=== PATIENT | male | born 1960 | race Caucasian/White ===

== ENCOUNTER 2017-06-26 12:23 | Day surgery (SDC) | payer BC ==
[~2017-06-26 12:23] MED LIST: BISACODYL 10 MG SUPP.RECT RC ONE; LACTATED RINGERS 1,000 ML IV.SOLN IV ONE; LIDOCAINE HCL/PF 2% 100 MG/5 ML VIAL IJ ONE; PROPOFOL 500 MG/50 ML VIAL IV ONE; SALINE FLUSH 10 ML DISP.SYRIN IVF ONE
[2017-06-26] MEDS ORDERED: BISACODYL 10 MG SUPP.RECT RC ONE (13:01)
--- NOTE | 2017-06-26 14:51 | GI Report ---
REFERRING PHYSICIAN: Dr. Jamil Moreno CHIEF DIGITAL OFFICER: Lebron Colby MD PROCEDURE MEDICATION: Propofol as per anesthesia. INDICATIONS: Patient is a 56-year-old man referred for a screening. He has been a diabetic for a number of years and is on oral agents. Sometimes there is a little blood with the stool. Sometimes he does strain. He is referred for a colonoscopy for the above indications. Last colonoscopy was 11 years ago over at the [facility]. On examination prior to the procedure, patient has prolapsed hemorrhoids. PROCEDURE PERFORMED: Colonoscopy and polypectomy. PROCEDURE: An Olympus video colonoscope was advanced to the rectum. A slightly atonic redundant colon. It took some maneuvering to reach the cecum. The appendiceal orifice and ileocecal valve were normal. We did lavage the cecum and ascending colon because there still was a little residual stool. No obvious intraluminal lesions noted. The transverse colon and descending colon with some redundancy. No obvious intraluminal lesions noted. In the sigmoid colon at 20 cm, patient had a 4 to 5 mm polyp removed with electrocautery. Retroflexion of the rectum shows internal hemorrhoids, as well as internal hemorrhoids prolapsed through the anal canal. FINDINGS: 1. Colon polyp in the sigmoid, removed. 2. Atonic redundant colon. 3. Internal hemorrhoids that tend to prolapse. RECOMMENDATIONS: 1. Add fiber to the diet. 2. Pending the pathology of the polyp, he needs his colon looked at again in 5 years. 3. Consider a referral to Dr. Benton regarding possible surgical banding or an approach to the hemorrhoids since they prolapse significantly. cc: Dr. Jamil TAMEZ
== END 2017-06-26 12:24 ==
LOC: OPSURG 12:23
PROVIDERS: ATTEND Internal Medicine Gastroenterology
DX: Z12.11 Encounter for screening for malignant neoplasm of colon (principal); D12.5 Benign neoplasm of sigmoid colon; K59.8 Other specified functional intestinal disorders; K64.8 Other hemorrhoids
CPT/HCPCS: 88305; J2001; J2704; J7120; 45385; S1016

== ENCOUNTER 2017-06-28 09:03 | Outpatient (CLI) | payer BC ==
[2017-06-28 10:14] LABS: eGFR (African) > 60; eGFR (Non-African) > 60
== END 2017-06-28 09:05 ==
LOC: LAB 09:03
PROVIDERS: ATTEND Family Medicine
DX: E11.9 Type 2 diabetes mellitus without complications (principal)
CPT/HCPCS: 36415; 80053; 80061; 82043

== ENCOUNTER 2017-07-06 09:56 | Outpatient (CLI) | payer BC | END 2017-07-06 09:57 | LOC: LAB 09:56 | PROVIDERS: ATTEND Family Medicine | DX: E11.9 Type 2 diabetes mellitus without complications (principal) | CPT/HCPCS: 36415; 83036 ==

== ENCOUNTER 2017-07-06 11:03 | Outpatient (CLI) | payer BC | END 2017-07-06 11:04 | LOC: OUT 11:03 | PROVIDERS: ATTEND Colon & Rectal Surgery | DX: K64.8 Other hemorrhoids (principal) | CPT/HCPCS: 99213 ==

== ENCOUNTER 2017-12-25 08:57 | Outpatient (CLI) | payer BC ==
[2017-12-25 10:13] LABS: eGFR (African) > 60; eGFR (Non-African) > 60
== END 2017-12-25 09:00 ==
LOC: LAB 08:57
PROVIDERS: ATTEND Family Medicine
DX: E11.9 Type 2 diabetes mellitus without complications (principal)
CPT/HCPCS: 36415; 80053; 80061; 82043; 83036

== ENCOUNTER 2018-06-27 09:20 | Outpatient (CLI) | payer BC ==
[2018-06-27 11:02] LABS: eGFR (Non-African) > 60
== END 2018-06-27 09:22 ==
LOC: LAB 09:20
PROVIDERS: ATTEND Physician Assistant
DX: E11.9 Type 2 diabetes mellitus without complications (principal); E78.1 Pure hyperglyceridemia
CPT/HCPCS: 80053; 80061; 83036

== ENCOUNTER 2018-12-26 09:22 | Outpatient (CLI) | payer BC ==
[2018-12-26 10:02] LABS: eGFR (Non-African) > 60
[2018-12-26 10:10] LABS: MEAN CORPUSCULAR HEMOGLOBIN 32.3 pg (28.0-34.0)
[2018-12-26 10:11] LABS: BASOPHILS % 2 % (0-2); EOSINOPHILS % 1 % (0-7); MONOCYTES % 7 % (0-11); SEGMENTED NEUTROPHILS % 65 % (39-79)
== END 2018-12-26 09:24 ==
LOC: LAB 09:22
PROVIDERS: ATTEND Family Medicine
DX: E11.9 Type 2 diabetes mellitus without complications (principal)
CPT/HCPCS: 36415; 80053; 80061; 82043; 83036; 85025

== ENCOUNTER 2019-06-26 09:33 | Outpatient (CLI) | payer BC ==
[2019-06-26 11:47] LABS: eGFR (Non-African) > 60
[2019-06-26 11:48] LABS: A1C 5.6 % (<5.7)
== END 2019-06-26 19:38 | disposition home or self-care (01) ==
LOC: LAB 09:33
PROVIDERS: ATTEND Family Medicine
DX: E11.9 Type 2 diabetes mellitus without complications (principal)
CPT/HCPCS: 36415; 80053; 83036